=== PATIENT | male | born 1975 | race Caucasian/White ===

== ENCOUNTER 2020-06-29 16:14 | Emergency (ER) | payer OTHER, SELFPAY ==
--- NOTE | 2020-06-29 16:38 | ED.URI ---
HPI - URI/Sore Throat General Chief Complaint: Unspecified Stated Complaint: covid test Source: patient Mode of arrival: ambulatory Limitations: clinical condition History of Present Illness HPI Narrative: Patient is a 44-year-old male who presents requesting Covid testing. Patient reports tested positive for Covid this afternoon, he reports symptoms have been going on approximately 5 days. Patient requesting testing for his work. Patient is asymptomatic at this time. Related Data Home Medications Medication Instructions Recorded Confirmed No Home Medications 06/29/20 06/29/20 Allergies Allergy/AdvReac Type Severity Reaction Status Date / Time No Known Allergies Allergy Unknown Verified 06/29/20 16:39 Review of Systems Review of Systems: Narrative: CONSTITUTIONAL: Denies fever, chills, or sweats. EYES: Denies visual changes, redness, or discharge. ENT: Denies rhinorrhea, congestion, sore throat, or otalgia. CARDIOVASCULAR: Denies chest pain, palpitations, or edema. RESPIRATORY: Denies cough or dyspnea. GASTROINTESTINAL: Denies abdominal pain, nausea, vomiting, or diarrhea. GENITOURINARY: Denies dysuria or hematuria. SKIN: Denies rash or itching. MUSCULOSKELETAL: Denies back pain, joint pain, or myalgia. NEUROLOGIC: Denies headache, numbness, dizziness, or weakness. PSYCHIATRIC: Denies anxiety or depression. PMFSH Past Medical History Medical History (Updated 06/29/20 @ 16:45 by NITHIN Zayas) No significant past medical history Surgical History Surgical History (Updated 06/29/20 @ 16:39 by NITHIN Zayas) No significant past surgical history Family History Family History (Updated 06/29/20 @ 16:40 by NITHIN Zayas) Other No significant past surgical history Social History Social History (Updated 06/29/20 @ 16:40 by NITHIN Zayas) Smoking status: Never smoker Alcohol intake: current Alcohol use details: Occasional Substance use: never Living arrangements: with family Occupation/Education: occupation Exam Narrative: Exam Narrative: GENERAL: Well-appearing, well-nourished, and in no acute distress. HEAD: Normocephalic, atraumatic. EYES: No redness or drainage. ENT: Mucous membranes pink and moist. CHEST: No respiratory distress. HEART: Regular rate and rhythm. EXTREMITIES: Normal range of motion. NEURO: No focal deficits. Alert and oriented x3. Gait steady. PSYCH: Normal affect. No signs of depression or anxiety. MDM - URI/Sore Throat MDM Narrative Medical decision making narrative: Patient to have Covid testing at this time. Patient aware that he will receive his results in 24 to 48 hours and he should continue to quarantine until such time, or quarantine as directed by his company or health department. Patient is stable for discharge home at this time with follow-up as needed. Differential Diagnosis Differential diagnosis: Likely upper respiratory infection, viral infection, influenza and other Critical Care Time Critical Care Time Critical Care Time: No Discharge Plan Discharge Clinical Impression: Close exposure to COVID-19 virus Patient Disposition: Home, Self-Care Condition: Stable Instructions: COVID-19 (Coronavirus Disease 2019) (ED) Additional Instructions: Your Covid test has been sent to the laboratory, you should receive results in 24 to 48 hours. Check the [email or web address] patient portal for your results, or you may call here as well. Please quarantine as directed. Prescriptions: No Action No Home Medications RF: 0 Follow-up/Referrals: PHYSICIAN,MILL SUPERVISOR [Primary Care Provider] - Stand Alone Forms: Work/School Release IP Time of Disposition: 16:45
[2020-06-30 19:23] LABS: SARS-CoV-2 RNA PCR Positive
== END 2020-06-29 16:47 | disposition home or self-care (01) ==
PROVIDERS: Emergency Provider Nurse Practitioner
DX: Z20.822 Contact with and (suspected) exposure to COVID-19 (principal)
CPT/HCPCS: 99212; C9803; G0463; U0003

== ENCOUNTER 2020-09-29 10:00 | Emergency (ER) | payer OTHER, SELFPAY ==
--- NOTE | 2020-09-29 10:08 | ED.URI ---
HPI - URI/Sore Throat General Chief Complaint: Upper Respiratory Infection Stated Complaint: Congestion/Cough Time Seen by Provider: 09/29/20 10:30 Source: patient and RN notes reviewed Mode of arrival: ambulatory Limitations: no limitations History of Present Illness HPI Narrative: 45-year-old male presents concern for persistent cough, productive cough. Reports mild rhinorrhea, nasal congestion. Reports symptoms started 3 days ago with sore throat. Reports sore throat has resolved. Reports cough is keeping him awake at night. Reports he had Covid in June. Denies loss of sense of taste or smell, body aches, chills, sweats, fever, shortness of breath. MD elicited complaint: cough Related Data Allergies Allergy/AdvReac Type Severity Reaction Status Date / Time No Known Allergies Allergy Unknown Verified 09/29/20 10:26 Review of Systems Review of Systems: Narrative: CONSTITUTIONAL: Denies malaise, chills, sweats, or fever. EYES: Denies visual changes, redness, or discharge. ENT: Reports rhinorrhea, congestion. Denies sinus pain, otalgia and sore throat. CARDIOVASCULAR: Denies chest pain, palpitations, or edema. RESPIRATORY: Reports persistent productive cough. Denies dyspnea. GASTROINTESTINAL: Denies abdominal pain, nausea, vomiting, diarrhea SKIN: Denies rash or itching. MUSCULOSKELETAL: Denies myalgia. NEUROLOGIC: Denies headache. All systems reviewed & are unremarkable except as noted in HPI and below PMFSH Past Medical History Medical History (Updated 09/29/20 @ 10:38 by Lucina Peralta NP) No significant past medical history Surgical History Surgical History (Updated 06/29/20 @ 16:39 by NITHIN Zayas) No significant past surgical history Family History Family History (Updated 06/29/20 @ 16:40 by NITHIN Zayas) Other No significant past surgical history Social History Social History (Updated 06/29/20 @ 16:40 by NITHIN Zayas) Smoking status: Never smoker Alcohol intake: current Substance use: never Comments At time of signature, agree with nursing past medical, surgical, social and family history. There is no relevant family history pertinent to the presenting complaint Exam Narrative: Exam Narrative: GENERAL: Well-appearing, well-nourished, and in no acute distress. HEAD: Normocephalic EYES: PERRLA, conjunctivae clear ENT: Nares clear, turbinates erythematous, clear discharge. Mucous membranes moist. TM pearly askew with dull light reflex bilaterally; no tragal tenderness. Oropharynx not erythematous without lesions. Tonsils not enlarged and without exudate, no drooling, no hoarseness, no trismus, uvula midline. NECK: Supple. No lymphadenopathy CHEST: Clear to auscultation, breath sounds equal. No wheezing, rhonchi, rales, or stridor. No respiratory distress, speaks in full sentences. Cough noted HEART: Regular rate and rhythm. No murmur heard. SKIN: Warm, dry, no rash. NEURO: Alert and oriented x3. PSYCH: Normal mood and affect Course Course Emergency Course: Patient is aware of diagnosis, understands and agrees to treatment plan. Anticipatory guidance given. Patient agrees to follow-up as directed and is aware of reasons to seek care at the emergency department. Portions of this record may have been created with voice recognition software Vital Signs Vital signs: Vital Signs Temperature 98.1 F 09/29/20 10:10 Pulse Rate 85 09/29/20 10:10 Respiratory Rate 20 09/29/20 10:10 Blood Pressure 134/82 09/29/20 10:10 Pulse Oximetry 98 09/29/20 10:10 Temperature 98.1 F 09/29/20 10:10 Pulse Rate 85 09/29/20 10:10 Respiratory Rate 20 09/29/20 10:10 Blood Pressure 134/82 09/29/20 10:10 Pulse Oximetry 98 09/29/20 10:10 Reviewed. MDM - URI/Sore Throat MDM Narrative Medical decision making narrative: Differential diagnosis considered: Joe virus, strep pharyngitis, allergic rhinitis, upper respiratory tract infection, sinusiti
[2020-09-29 10:10] VITALS: BP 134/82; PULSE 85; RESP 20; TEMP 36.7; O2SAT 98
== END 2020-09-29 10:45 | disposition home or self-care (01) ==
PROVIDERS: Emergency Provider Nurse Practitioner
DX: J40 Bronchitis, not specified as acute or chronic (principal)
CPT/HCPCS: 99213; G0463

== ENCOUNTER 2021-05-07 09:18 | Emergency (ER) | payer OTHER, SELFPAY ==
[2021-05-07 09:32] VITALS: BP 157/74; PULSE 101; RESP 16; TEMP 36.8; O2SAT 97
--- NOTE | 2021-05-07 09:53 | ED.URI ---
HPI - URI/Sore Throat General Chief Complaint: Upper Respiratory Infection Stated Complaint: Cough/Chest Congestion Time Seen by Provider: 05/07/21 09:43 Source: patient and RN notes reviewed Mode of arrival: ambulatory Limitations: no limitations History of Present Illness HPI Narrative: 45-year-old male presents with concern for cough, chest congestion, productive cough, nasal congestion, sore throat. Reports symptoms started on Saturday. Reports wheezing, shortness of breath with exertion. Reports history of asthma as a child. Reports he had a leftover albuterol inhaler from a previous illness, he last used at 8:00 this morning. Reports it provides some relief. Reports he had a Covid infection last year. Denies any known sick contacts. MD elicited complaint: cough and nasal congestion Related Data Allergies Allergy/AdvReac Type Severity Reaction Status Date / Time No Known Allergies Allergy Unknown Verified 05/07/21 09:47 Review of Systems Review of Systems: CONSTITUTIONAL: Denies malaise, chills, sweats, or fever. EYES: Denies visual changes, redness, or discharge. ENT: Reports rhinorrhea, congestion, sore throat. Denies sinus pain, otalgia CARDIOVASCULAR: Denies chest pain, palpitations, or edema. RESPIRATORY: Reports cough, wheezing. Reports conversational dyspnea. GASTROINTESTINAL: Denies abdominal pain, nausea, vomiting, diarrhea SKIN: Denies rash or itching. MUSCULOSKELETAL: Denies myalgia. NEUROLOGIC: Denies headache. All systems reviewed & are unremarkable except as noted in HPI and below PMFSH Past Medical History Medical History (Updated 05/07/21 @ 09:54 by Lucina Peralta NP) No significant past medical history Surgical History Surgical History (Updated 06/29/20 @ 16:39 by NITHIN Zayas) No significant past surgical history Family History Family History (Updated 06/29/20 @ 16:40 by NITHIN Zayas) Other No significant past surgical history Social History Social History (Updated 06/29/20 @ 16:40 by NITHIN Zayas) Smoking status: Never smoker Alcohol intake: current Alcohol use details: Occasional Substance use: never Comments At time of signature, agree with nursing past medical, surgical, social and family history. There is no relevant family history pertinent to the presenting complaint Exam Narrative: GENERAL: Well-appearing, well-nourished, and in no acute distress. HEAD: Normocephalic EYES: PERRLA, conjunctivae clear ENT: TM pearly askew with dull light reflex bilaterally; no tragal tenderness. Oropharynx not erythematous without lesions. Tonsils not enlarged and without exudate, no drooling, no hoarseness, no trismus, uvula midline. NECK: Supple. No lymphadenopathy CHEST: Scattered wheeze, scattered rhonchi, breath sounds equal. No rales, or stridor. No respiratory distress, speaks in full sentences. HEART: Regular rate and rhythm. No murmur heard. SKIN: Warm, dry, no rash. NEURO: Alert and oriented x3. PSYCH: Normal mood and affect Course Course Emergency Course: Patient is aware of diagnosis, understands and agrees to treatment plan. Anticipatory guidance given. Patient agrees to follow-up as directed and is aware of reasons to seek care at the emergency department. Portions of this record may have been created with voice recognition software Vital Signs Vital signs: Vital Signs Temperature 98.3 F 05/07/21 09:32 Pulse Rate 101 H 05/07/21 09:32 Respiratory Rate 16 05/07/21 09:32 Blood Pressure 157/74 H 05/07/21 09:32 Pulse Oximetry 97 05/07/21 09:32 Temperature 98.3 F 05/07/21 09:32 Pulse Rate 101 H 05/07/21 09:32 Respiratory Rate 16 05/07/21 09:32 Blood Pressure 157/74 H 05/07/21 09:32 Pulse Oximetry 97 05/07/21 09:32 Reviewed. MDM - URI/Sore Throat MDM Narrative Medical decision making narrative: Differential diagnosis considered: Joe virus, strep pharyngitis, allergic rhinitis, upper respiratory
== END 2021-05-07 10:05 | disposition home or self-care (01) ==
PROVIDERS: Emergency Provider Nurse Practitioner
DX: J06.9 Acute upper respiratory infection, unspecified (principal); J45.909 Unspecified asthma, uncomplicated; Z86.16 Personal history of COVID-19
CPT/HCPCS: 99213; G0463